=== PATIENT | male | born 1935 | race Caucasian/White ===

== ENCOUNTER 2016-11-12 05:11 | Emergency (ER) | payer MEDICARE, OTHER ==
[~2016-11-12 05:11] MED LIST: 15KENA.025 T; ACIDOPHILU1 PO; ALBUTEROL0.63 MG/3 INH; ASAB PO; COREG12 PO; COREG6 PO; CRESTOR5 MG PO; DEMA100 PO; DULCOLAX STOOL100 MG PO; FINACEA 15% T; FLOMAX4 PO; FLONASE NAS; HUMULIN500CONC; KAPIDEX60 MG PO; KLOR-CON M2020 MEQ PO; L80 PO; LAN125 PO; LIPITOR10 PO; METAMUCIL CAN7 OZ PO; METROLOTION0.75 % TOP; MOBIC15 MG PO; NITROQUICK0.4 MG SL; NIZORALCRM TOP; NORITATE1% TOP; NOVLOGPUMP SC; PULRESP1 INH; SPIRIVA INH; STERAPRED DS10 MG; VASOTEC10 PO; VENTOLIN HFA INH; Z5 PO; ZITHROMAX500 MG PO
[2016-11-12 05:21] LABS: BASOPHILS 0 %; EOSINOPHILS 0.5 %; EOSINOPHILS ABSOLUTE 0.06 10/3/uL (0.0-0.53); HEMATOCRIT 28.6 % (40.0-51.0); HEMOGLOBIN 9.3 g/dL (13.6-17.8); IMMATURE GRANULOCYTES 0.4 %; IMMATURE GRANULOCYTES ABSOLUTE 0.04 10/3/uL (0.0-0.11); LYMPHOCYTES 7.6 %; LYMPHOCYTES ABSOLUTE 0.85 10/3/uL (0.67-4.30); MEAN CORPUS HGB CONC 32.5 g/dL (32.0-36.0); MEAN CORPUSCULAR HEMOGLOB 26.7 pg (26.0-34.0); MEAN CORPUSCULAR VOLUME 82.2 fL (80-100); MEAN PLATELET VOLUME 10.6 fL (9.2-13.0); MONOCYTES 5.3 %; NEUTROPHILS 86.2 %; PLATELET COUNT 153 10/3/uL (150-400); RBC DISTRIBUTION WIDTH 15.7 % (12.0-16.0); RED CELL COUNT 3.48 10/6/uL (4.7-6.1); WHITE BLOOD CELLS 11.3 10/3/uL (4.5-10.5)
[2016-11-12 05:22] LABS: ER CBC TAT 0 Hrs 10 MinsNP; MANUAL DIFF NO %
[2016-11-12 05:25] LABS: INTERNATIONAL NORMAL RATI 1.1 UNITS (-); PARTIAL THROMBO TIME 42.1 SEC (22.5-37.2); PROTIME (NOT ORD) 14.2 SEC (12.0-14.5)
[2016-11-12 05:46] LABS: BUN (BLOOD UREA NITROGEN) 103 MG/DL (6-23); CALCIUM, SERUM 7.8 MG/DL (8.5-10.4); CHEST PAIN PROFILE TAT 0 Hrs 35 Mins; CHLORIDE, SERUM 91 MMOL/L (96-112); CO2 (CARBON DIOXIDE) 33 MMOL/L (24-34); CREATININE 2.07 MG/DL (0.70-1.30); DIGOXIN 1.1 NG/ML (0.8-2.0); GFR AFRICAN AMERICAN 34 ML/MIN (>=60); GFR NON AFRICAN AMERICAN 30 ML/MIN (>=60); GLUCOSE, SERUM 31 MG/DL (60-99); POTASSIUM, SERUM 3.9 MMOL/L (3.5-5.3); SODIUM, SERUM 129 MMOL/L (135-148); TROPONIN I <0.02 NG/ML (<0.05)
[2017-02-06] MEDS ORDERED: LIPITOR10 PO (16:55)
[2017-02-06] MEDS ORDERED: HALF81 PO (16:55)
[2017-02-06] MEDS ORDERED: COREG3 PO (16:55)
[2017-02-06] MEDS ORDERED: KAPIDEX30 MG PO (16:56)
[2017-02-06] MEDS ORDERED: NITROSTAT0.4 MG SL (16:56)
[2017-02-06] MEDS ORDERED: ATV1 PO ×2 (16:56)
[2017-02-06] MEDS ORDERED: SPIRIVA INH (16:56)
[2017-02-06] MEDS ORDERED: DEMA100 PO (16:57)
[2017-02-06] MEDS ORDERED: VENTOLIN HFA PO (16:57)
[2017-02-06] MEDS ORDERED: FLOMAX4 PO (16:57)
[2017-02-06] MEDS ORDERED: METPAKSF PO (16:58)
[2017-02-06] MEDS ORDERED: CULTURELLE1 EACH PO (16:58)
[2017-02-06] MEDS ORDERED: D.O.S.100 MG PO (16:58)
[2017-02-06] MEDS ORDERED: ALBUTEROL0.083 % INH (16:58)
[2017-02-06] MEDS ORDERED: LAN125 PO (17:00)
[2017-02-06] MEDS ORDERED: HUMULIN-R CONCEN3 ML SC (17:00)
[2017-02-06] MEDS ORDERED: Z5 PO (17:00)
== END 2016-11-12 07:12 | disposition home or self-care (01) ==
LOC: ER 05:11
PROVIDERS: Emergency Medicine
DX: E11.649 Type 2 diabetes mellitus with hypoglycemia without coma (principal); R53.1 Weakness; J44.9 Chronic obstructive pulmonary disease, unspecified; I10 Essential (primary) hypertension; I48.91 Unspecified atrial fibrillation; K21.9 Gastro-esophageal reflux disease without esophagitis; D64.9 Anemia, unspecified; Z95.1 Presence of aortocoronary bypass graft; Z91.09 Other allergy status, other than to drugs and biological substances; Z88.5 Allergy status to narcotic agent; Z79.82 Long term (current) use of aspirin; Z79.4 Long term (current) use of insulin; Z79.2 Long term (current) use of antibiotics; Z79.899 Other long term (current) drug therapy
CPT/HCPCS: 71010; 80048; 80162; 82962; 83735; 84484; 85025; 85610; 85730; 93005; 96374; 99285